=== PATIENT | female | born 1965 | race American Indian/Alaskan Native ===

== ENCOUNTER 2016-07-03 09:20 | Outpatient (CLI) | payer OTHER ==
--- NOTE | 2016-07-03 10:44 | Mammography Report ---
Bilateral mammogram: Compared to 06/21/15. CAD study visualized. Findings: Heterogeneous breast parenchyma bilaterally. No mass or microcalcification. Benign axillary nodes. Impression: Benign findings. Annual followup recommended. BI-RADS CATEGORY: 2 = Benign ACR BI-RADS MAMMOGRAPHIC CODES: 0 = Needs additional imaging evaluation; 1 = Negative; 2 = Benign; 3 = Probably benign; 4 = Suspicious; 5 = Malignant; 6 = Known biopsy-proven malignancy COMMENT: 1. Dense breast tissue, i.e., adenosis, fibrocystic changes, etc., may obscure an underlying neoplasm. 2. Approximately 10% of cancers are not detected with mammography. 3. A negative mammography report should not delay biopsy if a clinically suspicious mass is present. COMMENT: Patient follow-up letters are generated in [employer].
== END 2016-07-03 09:21 | disposition home or self-care (01) ==
LOC: MAMMO 09:20
PROVIDERS: ATTEND Obstetrics & Gynecology
DX: Z12.31 Encounter for screening mammogram for malignant neoplasm of breast (principal)
CPT/HCPCS: 77067; G0202

== ENCOUNTER 2017-07-27 09:09 | Outpatient (CLI) | payer OTHER ==
--- NOTE | 2017-07-27 10:03 | Mammography Report ---
Bilateral mammogram the tomosynethesis: Compared to 07/03/16. CAD study utilized. Findings: Standard annular parenchyma bilaterally. Benign axillary nodes and intramammary lymph nodes left breast. Focal circumscribed asymmetry noted in the anterior outer left breast seen only on CC mammogram. No microcalcification. Impression: Focal asymmetry seen on CC tomogram left breast. Recommend sonographic examination. BI-RADS CATEGORY: 0 = Needs additional imaging evaluation ACR BI-RADS MAMMOGRAPHIC CODES: 0 = Needs additional imaging evaluation; 1 = Negative; 2 = Benign; 3 = Probably benign; 4 = Suspicious; 5 = Malignant; 6 = Known biopsy-proven malignancy COMMENT: 1. Dense breast tissue, i.e., adenosis, fibrocystic changes, etc., may obscure an underlying neoplasm. 2. Approximately 10% of cancers are not detected with mammography. 3. A negative mammography report should not delay biopsy if a clinically suspicious mass is present. COMMENT: Patient follow-up letters are generated in [employer].
== END 2017-07-27 09:10 | disposition home or self-care (01) ==
LOC: MAMMO 09:09
PROVIDERS: ATTEND Obstetrics & Gynecology
DX: Z12.31 Encounter for screening mammogram for malignant neoplasm of breast (principal)
CPT/HCPCS: 77063; 77067

== ENCOUNTER 2017-09-07 07:12 | Outpatient (CLI) | payer OTHER ==
--- NOTE | 2017-09-07 16:24 | Ultrasound Report ---
LEFT BREAST ULTRASOUND: 09/07/17 07:12:00 CLINICAL: Asymmetry on recent screening mammogram. COMPARISON: 07/27/17 screening mammogram with digital breast tomosynthesis (DBT) FINDINGS: Ultrasound of the left breast was performed from 12 o'clock to 6 o'clock and demonstrated normal fibroglandular structures with no mass, cyst or shadowing to correlate with the mammographic finding. IMPRESSION: Negative left breast ultrasound and probably benign mammographic asymmetry. BI-RADS 3 - - Probably Benign RECOMMENDATION: Six month followup left diagnostic mammogram with digital breast tomosynthesis (DBT).
== END 2017-09-07 07:13 | disposition home or self-care (01) ==
LOC: US 07:12
PROVIDERS: ATTEND Obstetrics & Gynecology
DX: N64.89 Other specified disorders of breast (principal)

== ENCOUNTER 2018-08-29 08:11 | Outpatient (CLI) | payer OTHER ==
--- NOTE | 2018-09-18 14:55 | Mammography Report ---
BILATERAL MAMMOGRAM: FINDINGS: The breast tissue is heterogeneously dense, which could obscure detection of small masses (approximately 50%-75% glandular). No mass, distortion, suspicious calcification, or skin change is seen. No significant change when compared to prior exams dating back to 2015. CAD was utilized. IMPRESSION: Negative mammogram. There is no mammographic evidence of malignancy. RECOMMENDATION: Follow-up per ACS guidelines. BI-RADS CATEGORY: 1 = Negative ACR BI-RADS MAMMOGRAPHIC CODES: 0 = Needs additional imaging evaluation; 1 = Negative; 2 = Benign; 3 = Probably benign; 4 = Suspicious; 5 = Malignant; 6 = Known biopsy-proven malignancy COMMENT: 1. Dense breast tissue, i.e., adenosis, fibrocystic changes, etc., may obscure an underlying neoplasm. 2. Approximately 10% of cancers are not detected with mammography. 3. A negative mammography report should not delay biopsy if a clinically suspicious mass is present. COMMENT: Patient follow-up letters are generated in [employer].
== END 2018-08-29 08:12 | disposition home or self-care (01) ==
LOC: SPVWC 08:11
PROVIDERS: ATTEND Obstetrics & Gynecology
DX: Z12.31 Encounter for screening mammogram for malignant neoplasm of breast (principal)
CPT/HCPCS: 77063; 77067